=== PATIENT | female | born 1975 | race Caucasian/White ===

== ENCOUNTER 2018-09-04 02:36 | Emergency (ER) | payer BC ==
[~2018-09-04] VITALS: Ht 167.6 cm; Wt 77.3 kg
[2018-09-04 03:18] VITALS: BP 128/79
--- NOTE | 2018-09-04 03:19 | NUR ---
PT CHECKED MANUALLY. DILATED TO 10. RN BENEDICTO RUIZ, AND ESVIN AT BS. DANIELA AT BS. RESPIRATORY AT BEDSIDE WITH BABY WARMER PREPPED. ROOM IS PREPPED FOR DELIVER. PT PUSHING.
--- NOTE | 2018-09-04 03:21 | NUR ---
PT PHAN ALEJANDRA RN AT BEDSIDE. RESPIRATORY AT BEDSIDE. CARTS PREPPED FOR DELIVERY.
--- NOTE | 2018-09-04 03:25 | NUR ---
PT PUSHING AGAIN.
--- NOTE | 2018-09-04 03:28 | NUR ---
CONTRACTIONS ABOUT ONE MINUTE APART. STERILE TRAYS PREPPED AT BEDSIDE. BENEDICTO HARRIS AND DANIELA WOODARD PREPPED IN STERILE GLOVES. AT BEDSIDE. DANG MOODY AT BEDSIDE TO ASSIST. RESPIRATORY IN ROOM.
--- NOTE | 2018-09-04 03:33 | NUR ---
PT PUSHING. HEAD IS VISABLE.
--- NOTE | 2018-09-04 03:35 | NUR ---
AMNIOTIC SAC RUPTURED. CLEAR FLUID.
--- NOTE | 2018-09-04 03:44 | NUR ---
CALCULATED HEARTRATE OF 150 BPM
--- NOTE | 2018-09-04 03:45 | NUR ---
PT PLACED ON 3 LITERS NC. HEARTRATE BEING MONITORED VIA ULTRASOUND.
--- NOTE | 2018-09-04 03:47 | NUR ---
CONTRACTIONS REMAIN ABOUT 1 MINUTE APART.
--- NOTE | 2018-09-04 04:01 | NUR ---
CONFIRMED TRANSPORT TO [facility]. EMS AT BEDSIDE. PT TRANSERED TO [facility].
== END 2018-09-04 04:36 | disposition short-term general hospital (02) ==
LOC: ER 02:38
DX: O26.893 Other specified pregnancy related conditions, third trimester (principal); R10.9 Unspecified abdominal pain; Z3A.49 Greater than 42 weeks gestation of pregnancy
CPT/HCPCS: 99285